=== PATIENT | male | born 1935 | race Caucasian/White ===

== ENCOUNTER 2017-01-14 01:31 | Inpatient (IN) | payer MEDICARE, OTHER ==
[~2017-01-14] VITALS: Ht 170.2 cm; Wt 73.4 kg
--- OUTSIDE RECORDS SUMMARY | 2017-01-14 01:36 | XMS REPORT | Continuity of Care Document ---
Author Author [facility] Address Unknown Phone Unavailable Allergies Active Description Code Type Severity Reaction Onset Reported/Identified Relationship to Patient Clinical Status Yes No Known Allergies 617072 3 N/A N/A Medications Problems Date Dx Coded Attending Type Code Diagnosis Diagnosed By 08/15/2015 ROSEMARY DAVISON MD Ot E78.5 08/15/2015 ROSEMARY DAVISON MD Ot G62.9 08/15/2015 ROSEMARY DAVISON MD Ot I10 08/15/2015 ROSEMARY DAVISON MD Ot I25.10 08/15/2015 ROSEMARY DAVISON MD Ot Z00.00 08/15/2015 ROSEMARY DAVISON MD Ot Z13.6 08/30/2015 ROSEMARY DAVISON MD Ot E78.5 08/30/2015 ROSEMARY DAVISON MD Ot G62.9 08/30/2015 ROSEMARY DAVISON MD Ot I10 08/30/2015 ROSEMARY DAVISON MD Ot I25.10 08/30/2015 ROSEMARY DAVISON MD Ot Z00.00 08/30/2015 ROSEMARY DAVISON MD Ot Z13.6 01/10/2016 Ot M25.532 01/30/2016 Ot M25.532 PAIN IN LEFT WRIST 02/03/2016 ROSEMARY DAVISON MD Ot M25.532 PAIN IN LEFT WRIST 02/03/2016 ROSEMARY DAVISON MD Ot S52.92XA UNSP FRACTURE OF LEFT FOREARM, INIT FOR 02/03/2016 ROSEMARY DAVISON MD Ot W19.XXXA UNSPECIFIED FALL, INITIAL ENCOUNTER 02/05/2016 Ot M25.532 PAIN IN LEFT WRIST 02/05/2016 ROSEMARY DAVISON MD Ot M25.532 PAIN IN LEFT WRIST 02/05/2016 ROSEMARY DAVISON MD Ot S52.92XA UNSP FRACTURE OF LEFT FOREARM, INIT FOR 02/05/2016 ROSEMARY DAVISON MD Ot W19.XXXA UNSPECIFIED FALL, INITIAL ENCOUNTER 02/05/2016 Ot M25.532 PAIN IN LEFT WRIST 02/06/2016 Ot M25.532 PAIN IN LEFT WRIST 02/23/2016 ROSEMARY DAVISON MD Ot M25.532 PAIN IN LEFT WRIST 02/23/2016 ROSEMARY DAVISON MD Ot S52.92XA UNSP FRACTURE OF LEFT FOREARM, INIT FOR 02/23/2016 ROSEMARY DAVISON MD Ot W19.XXXA UNSPECIFIED FALL, INITIAL ENCOUNTER 02/27/2016 ROSEMARY DAVISON MD Ot M25.532 PAIN IN LEFT WRIST 02/27/2016 ROSEMARY DAVISON MD Ot S52.92XA UNSP FRACTURE OF LEFT FOREARM, INIT FOR 02/27/2016 ROSEMARY DAVISON MD Ot W19.XXXA UNSPECIFIED FALL, INITIAL ENCOUNTER 02/29/2016 W S52.592A Other closed fracture of distal end of left radius, initial encounter 03/16/2016 W S52.592A Other closed fracture of distal end of left radius, initial encounter 03/16/2016 W S52.592D Other fractures of lower end of left radius, subsequent encounter for closed fracture with routine healing 04/28/2016 LATIA DUDLEY Ot S61.411A LACERATION WITHOUT FOREIGN BODY OF RIGHT 04/28/2016 LATIA DUDLEY Ot X58.XXXA EXPOSURE TO OTHER SPECIFIED FACTORS, INI 04/28/2016 LATIA DUDLEY Ot Y92.[address] OR NOT APPLICABLE 04/28/2016 LATIA DUDLEY Ot Y93.89 ACTIVITY, OTHER SPECIFIED 04/28/2016 LATIA DUDLEY Ot Y99.9 UNSPECIFIED EXTERNAL CAUSE STATUS 05/16/2016 LATIA DUDLEY Ot S61.411A LACERATION WITHOUT FOREIGN BODY OF RIGHT 05/16/2016 LATIA DUDLEY Ot X58.XXXA EXPOSURE TO OTHER SPECIFIED FACTORS, INI 05/16/2016 LATIA DUDLEY Ot Y92.[address] OR NOT APPLICABLE 05/16/2016 LATIA DUDLEY Ot Y93.89 ACTIVITY, OTHER SPECIFIED 05/16/2016 LATIA DUDLEY Ot Y99.9 UNSPECIFIED EXTERNAL CAUSE STATUS 08/13/2016 ROSEMARY DAVISON MD Ot E78.4 OTHER HYPERLIPIDEMIA 08/13/2016 ROSEMARY DAVISON MD Ot 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 08/13/2016 ROSEMARY DAVISON MD Ot E78.4 OTHER HYPERLIPIDEMIA 08/13/2016 ROSEMARY DAVISON MD, Ot 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 08/13/2016 ROSEMARY DAVISON MD Ot E78.4 OTHER HYPERLIPIDEMIA 08/13/2016 ROSEMARY DAVISON MD, Ot 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 08/13/2016 ROSEMARY DAVISON MD Ot E78.4 OTHER HYPERLIPIDEMIA 08/13/2016 ROSEMARY DAVISON MD Ot 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 08/15/2016 ROSEMARY DAVISON MD Ot E78.4 OTHER HYPERLIPIDEMIA 08/15/2016 ROSEMARY DAVISON MD Ot 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 08/15/2016 ROSEMARY DAVISON MD Ot I10 ESSENTIAL (PRIMARY) HYPERTENSION 08/15/2016 ROSEMARY DAVISON MD Ot I25.10 ATHSCL HEART DISEASE OF [place] CORONARY 08/15/2016 ROSEMARY DAVISON MD Ot Z00.00 ENCNTR FOR GENERAL ADULT MEDICAL EXAM W 08/24/2016 ROSEMARY DAVISON MD Ot Z13.6 ENCOUNTER FOR SCREENING FOR CARDIOVASCUL 09/05/2016 ROSEMARY DAVISON MD Ot E78.4 OTHER HYPERLIPIDEMIA 09/05/2016 ROSEMARY DAVISON MD Ot 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 09/05/2016 ROSEMARY DAVISON MD Ot I10 ESSENTIAL (PRIMARY) HYPERTENSION 09/05/2016 ROSEMARY DAVISON MD Ot I25.10 ATHSCL HEART DISEASE OF [place] CORONARY 09/05/2016 ROSEMARY DAVISON MD Ot Z00.00 ENCNTR FOR GENERAL ADULT MEDICAL EXAM W 09/12/2016 ROSEMARY DAVISON MD Ot Z13.6 ENCOUNTER FOR SCREENING FOR CARDIOVASCUL Procedures Code Description [place] [address] OFFICE/OUTPATIENT VISIT NEW 2016 31671 X-RAY EXAM OF WRIST 02/29/2016 65570 OFFICE/OUTPATIENT VISIT EST 02/29/2016 Results Test Result Range Complete blood count (CBC) with automated white blood cell (WBC) differential - 08/13/16 07:45 Blood automated leukocyte count 5.10 4.0 -11.0 Erythrocytes 3.95 4.50-5.50 12.0-16.0;g/dL 12.4 13.5-17.0 Hematocrit 36.10 39.00-50.00 Automated erythrocyte mean corpuscular volume 91 80-100 Mean corpuscular hemoglobin (MCH) determination 31.4 26.0-34.0 Automated erythrocyte mean corpuscular hemoglobin concentration measurement ( mass/volume) 34.3 31.0-37.0 Erythrocyte distribution width 12.9 11.8 -15.6 Automated blood platelet count 230 150- 450 Automated blood platelet mean volume measurement 10.2 6.0-9.5 Automated neutrophil percentage 66 51- 67 Lymphocytes/100 leukocytes 21 20-46 Automated monocyte percentage 9 3-11 Eosinophil count auto 4 0-4 Automated basophil percentage 1 0-2 Automated blood neutrophil count 3.4 Blood lymphocytes count (number/volume) 1.1 Automated blood monocyte count 0.5 Blood absolute eosinophil count 0.2 Basophils 0.0 Comprehensive metabolic panel - 08/13/16 07:45 Sodium measurement 97 70-110 Carbon dioxide measurement 29 22-29 Serum or plasma anion gap 13.8 3-15 BLOOD UREA NITROGEN 21 7-18 CREATININE SERUM 1.03 0.8-1.5 Brucella species antibody panel (IgG, IgM) 20 10-20 Estimated glomerular filtration rate (GFR) 83.7 Estimated glomerular filtration rate (GFR) non- 69.1 OSMOLALITY,CALCULATED 280 280-300 CALCIUM 9.3 8.8-10.8 Calculated ionized calcium measurement 4.0 3.8-4.6 BILIRUBIN,TOTAL 0.6 0.1-1.0 Serum or plasma alkaline phosphatase measurement 80 38-126 ASPARTATE AMINO TRANSFERASE 34 15-37 ALANINE AMINOTRANSFERASE 38 30-65 Serum or plasma total protein measurement 7.3 6.4-8.5 Serum or plasma albumin measurement 3.9 3.4-5.0 Serum or plasma albumin/globulin mass ratio 1.147 1.1-1.8 General health panel - 08/13/16 07:45 Total cell count 4.45 0.46-4.68 LIPID PANEL - 08/13/16 07:45 Cholesterol 132 50-200 HDL Cholesterol 47 40-60 Triglycerides 103 10-150 LDL CHOLESTEROL 64 50-130 VLDL Cholesterol, calc 21 4.00-40.00 Cholesterol.total/Cholesterol.in HDL 2.8 0.0-5.0 Encounters ACCT No. Visit Date/Time Discharge Status Pt. Type Provider Facility Loc./Unit Complaint [id number] 09/06/2015 10:17:00 2014 23:59:59 CLS Outpatient KAMI IVY, [facility] [id number] 08/08/2015 07:33:00 2014 23:59:59 CLS Outpatient LANEY BALLARD, [facility] LAB [id number] 07/29/2014 07:33:00 2013 23:59:59 CLS Outpatient [id number] 06/16/2014 02:18:00 2013 23:59:59 CLS Outpatient [id number] 05/28/2013 15:15:00 2012 16:00:00 DIS Outpatient [id number] 05/26/2013 07:21:00 2012 23:59:59 CLS Outpatient [id number] 08/22/2016 08:12:00 ACT Outpatient LANEY BALLARD, [facility] RAD AAA SCREENING [id number] 08/13/2016 07:38:00 ACT Outpatient LANEY BALLARD, [facility] LAB [id number] 01/31/2016 10:20:00 ACT Outpatient LANEY BALLARD, [facility] RAD [id number] 01/06/2016 09:13:00 Document Registration
--- OUTSIDE RECORDS SUMMARY | 2017-01-14 01:39 | XMS REPORT | Continuity of Care Document ---
Author Author [facility] Address Unknown Phone Unavailable Allergies Active Description Code Type Severity Reaction Onset Reported/Identified Relationship to Patient Clinical Status Yes No Known Allergies 248281 3 N/A N/A Medications Problems Date Dx [...] MD Ot I25.10 ATHSCL HEART DISEASE OF [place] CORONARY 08/15/2016 ROSEMARY DAVISON MD Ot Z00.00 ENCNTR FOR GENERAL ADULT MEDICAL EXAM W 08/24/2016 ROSEMARY DAVISON MD Ot Z13.6 ENCOUNTER FOR SCREENING FOR CARDIOVASCUL 09/05/2016 ROSEMARY DAVISON MD Ot E78.4 OTHER HYPERLIPIDEMIA 09/05/2016 ROSEMARY DAVISON MD Ot 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 Type Provider Facility Loc./Unit Complaint [id number] 09/06/2015 10:17:00 2014 23:59:59 CLS Outpatient KAMI IVY, [facility] [id number] 08/08/2015 07:33:00 2014 23:59:59 CLS Outpatient LANEY BALLARD, [facility] LAB [id number] 07/29/2014 07:33:00 2013 23:59:59 CLS Outpatient [id number] 06/16/2014 02:18:00 2013 23:59:59 CLS Outpatient [id number] 05/28/2013 15:15:00 2012 16:00:00 DIS Outpatient [id number] 05/26/2013 07:21:00 2012 23:59:59 CLS Outpatient [id number] 08/22/2016 08:12:00 ACT Outpatient LANEY BALLARD, [facility] RAD AAA SCREENING [id number] 08/13/2016 07:38:00 ACT Outpatient LANEY BALLARD, [facility] LAB [id number] 01/31/2016 10:20:00 ACT Outpatient LANEY BALLARD, [facility] RAD [id number] 01/06/2016 09:13:00 Document Registration
[2017-01-14] MEDS ORDERED: ONDANSETRON 2 MG/ML (Z0FRAN) 2 ML VIAL IV ONE (01:45)
[2017-01-14 02:05] LABS: BASOPHILS % (AUTO) 0 % (0-2); EOSINOPHILS # (AUTO) 0.1 10^3uL; EOSINOPHILS % (AUTO) 1 % (0-4); LYMPHOCYTES # (AUTO) 0.9 X10^3; MEAN CORPUSCULAR HEMOGLOBIN 30.1 PG (26.0-34.0); MEAN CORPUSCULAR HGB CONC 33.2 g/dL (31.0-37.0); MEAN CORPUSCULAR VOLUME 91 FL (80-100); MEAN PLATELET VOLUME 11.4 FL (6.0-9.5); MONOCYTES # (AUTO) 0.9 X10^3; MONOCYTES % (AUTO) 8 % (3-11); NEUTROPHILS # (AUTO) 10.4 X10^3; NEUTROPHILS % (AUTO) 84 % (51-67); PLATELET COUNT 225 10^3uL (150-450); WHITE BLOOD COUNT 12.44 10^3uL (4.0-11.0)
[2017-01-14 02:06] LABS: ALBUMIN 4.3 g/dL (3.4-5.0); ALKALINE PHOSPHATASE 108 U/L (38-126); ANION GAP 16.8 MEQ/L (3-15); BUN/CREATININE RATIO 21 (10-20); LIPASE* 1045 U/L (23-300); TOTAL PROTEIN 7.4 g/dL (6.4-8.5)
[2017-01-14] MEDS ORDERED: ACETAMINOPHEN 325 MG TAB (TYLENOL) PO PRN (03:00)
[2017-01-14] MEDS ORDERED: HYDROmorphone 1 MG/ML (DILAUDID) SYRINGE IV PRN (03:00)
[2017-01-14] MEDS ORDERED: ONDANSETRON 2 MG/ML (Z0FRAN) 2 ML VIAL IV PRN (03:00)
[2017-01-14] MEDS ORDERED: CLOP75TA28 PO (03:08)
[2017-01-14] MEDS ORDERED: SIMV40TA2 PO (03:11)
[2017-01-14] MEDS ORDERED: ASPI-586 PO (03:11)
--- NOTE | 2017-01-14 03:14 | NUR ---
PT CONTINUES TO DENIES PAIN SINCE ARRIVAL. NO N/V/D WHILE IN ED.
--- NOTE | 2017-01-14 03:26 | NUR ---
Pt admitted to 303 via w/c from ER, accompanied by . Ambulates to weight chair and bed. Denies pain. No n/v. See admission assessment for further details.
[2017-01-14 03:36] VITALS: BP 140/60
--- NOTE | 2017-01-14 03:55 | NUR ---
Dr Pierce assesses pt via remote monitoring.
--- NOTE | 2017-01-14 04:26 | History and Physical (E) ---
History & Physical Chief complaint: Abdominal pain History of present illness: This is an 81-year-old male who has intermittent episodes of abdominal pain. She is last episode was 3 years ago. At 10:00 tonight patient had sudden onset of abdominal pain primarily epigastric in location. This pain did not radiate. The patient had associated nausea and vomiting and diarrhea. The patient felt fine after that point. The patients symptoms persisted and therefore patient presents to the emergency department for evaluation. In the emergency department the patients workup demonstrated elevated lipase. At this time the patient is to be admitted for further assessment of acute pancreatitis. The patients previous episode 3 years ago, the patient did not seek medical care. The patient has had a colonoscopy 10 years ago that was described as normal Past medical history: Coronary artery disease, atrial fibrillation, hypertension Past surgical history: Arthroscopic procedure on the, epidural injections for C8 Medications: See medication administration record Allergies: None Social history: , in room patient, retired from the [employer] business, no tobacco, no alcohol Family history: Noncontributory Review of systems: No headache, no change in vision, no fever chills or sweats, no sores in the mouth, no difficulty swallowing, no neck or jaw pain, no chest pain, no cough or URI symptoms, patient denies paroxysmal nocturnal dyspnea, no orthopnea, patient had onset of dull pain with nausea and vomiting and diarrhea as noted above, no blood in either activities, patients weight is unchanged, down to 160 chronically for the past several years, patient denies any urinary symptoms , no edema in the legs, no neurological symptoms, a 12 point review systems is otherwise negative except for outlined above Physical examination: Vital signs: Afebrile, blood pressure 137/54, sats are 95% on room air, pulse is 75 General well-developed well-nourished white male alert and oriented person place and time and situation in no distress comfortable sitting in bed HEENT: Sclera nonicteric, extraocular muscles are intact Neck is supple without pain with movement Lungs are diminished but no wheezes or rhonchi Heart is regular rate and rhythm no murmur Abdomen is flat, bowel sounds are diminished at present, mild tenderness to palpation per nursing personnel Extremities show no edema Neurologically no deficits Lab: Sodium 144, potassium 3.6, serum bicarbonate 27, U 23, currently 1.1, glucose 118, white count 12.4, hemoglobin 12.9, platelet counts 225,000, 84% segs, lipase is 1045, troponin less than 0.01, liver profile is normal Impression/plan 1. 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 Coronary disease chronic present admission: Well hold oral medicines acutely with pancreatitis, will adjust meds as indicated as by mouth status improves, workup on admission demonstrates no evidence of cardiac disease exacerbation 3. History of atrial fibrillation chronic present admission: Not initiate this point in time 4. Hypertension chronic present on admission: Patient states that this is been resolved for the most recent. 5. DVT prophylaxis: SCD Allergies/Home Medications Allergies: Coded Allergies: No Known Drug Allergies (Unverified , 01/14/17) Reported Home Medications Scheduled Aspirin (Aspir 81) 81 MG PO DAILY (Reported) Clopidogrel Bisulfate (Clopidogrel) 75 MG PO DAILY (Reported) Simvastatin (Simvastatin) 40 MG PO DAILY (Reported) Copies to: End of Report . JENNIFER HILL MD Jan 14, 2017 04:26
[2017-01-14] MEDS ORDERED: PANTOPRAZOLE IV 40 MG in SODIUM CHLORIDE FLUSH 10 ML IV ONE (06:00)
[2017-01-14 06:04] LABS: MEAN CORPUSCULAR HEMOGLOBIN 30.2 PG (26.0-34.0); MEAN CORPUSCULAR HGB CONC 33.4 g/dL (31.0-37.0); MEAN CORPUSCULAR VOLUME 90 FL (80-100); MEAN PLATELET VOLUME 11.1 FL (6.0-9.5); PLATELET COUNT 185 10^3uL (150-450); WHITE BLOOD COUNT 9.81 10^3uL (4.0-11.0)
--- NOTE | 2017-01-14 06:09 | NUR ---
Pt cont to deny pain. No n/v since admission. No diarrhea. IVF infusing w/o difficulty. Resp even and non labored on RA.
[2017-01-14 06:21] LABS: ALBUMIN 3.4 g/dL (3.4-5.0); TOTAL PROTEIN 6.2 g/dL (6.4-8.5)
[2017-01-14 06:25] LABS: BAND NEUTROPHILS % 4 % (0-6); EOSINOPHILS % 2 % (0-4); LYMPHOCYTES # 0.4 #; MONOCYTES # 0.7 #; MONOCYTES % 8 % (3-11); RBC MORPH NORMAL (NORMAL); SEGMENTED NEUTROPHILS % 82 % (51-67); TOTAL CELLS COUNTED 100
[2017-01-14 07:19] VITALS: BP 119/59
--- NOTE | 2017-01-14 08:38 | NUR ---
NUTRITION ASSESSMENT Level 1 Patient: Malik De Jesus Age/Sex: 81/M Date Screened: 01-14-17 Weight: 164.3#/74.7 kg Height: 67 inches Primary Diagnosis: abdominal pain Diet Order: NPO Relevant labs: glucose 110, triglycerides 64, cholesterol 98, LDL 50, HDL 35, lipase 762 Food allergies: N Nutrition Assessment Criteria Age over 80: 4 points Body Mass Index (BMI) under 19: N Admission Screening Indicates Risk? N Moderate/High Risk Diagnosis: 3 points TPN or PPN: N NPO or clear liquid diet: Yes Serum Glucose <70 or >180: N Hgb A1c >6.7: N/A Total: 7 points Risk Screen: __ Patient at low nutritional risk based on available data; reevaluate in 5-7 days __ Patient at moderate nutritional risk based on available data; reevaluate in 3-5 days _X_ Patient at high nutritional risk; complete Nutrition Assessment within 48 hours of admission.
[2017-01-14] MEDS ORDERED: MULT-954 PO (08:40)
[2017-01-14] MEDS ORDERED: UBID1CAP51 PO (08:40)
--- NOTE | 2017-01-14 08:43 | NUR ---
Med Rec completed via conversation with the patient and ext med hx.
[2017-01-14] MEDS ORDERED: LACTATED RINGERS 1,000 ML IV SCH (08:45)
[2017-01-14] MEDS ORDERED: PROMETHAZINE HCL INJ 12.5 MG in SODIUM CHLORIDE 25 ML IV PRN (08:45)
[2017-01-14 09:03] VITALS: BP 119/59
[2017-01-14] MEDS: ENOXAPARIN 40 MG/0.4 ML (LOVENOX) SYR SC SCH (09:20)
--- NOTE | 2017-01-14 09:30 | NUR ---
To radiology for CT scan. Patient remains NPO and denies abdominal pain or nausea.
[2017-01-14] MEDS ORDERED: SODIUM CHLORIDE FLUSH 3 ML SYR ONE (10:14)
[2017-01-14] MEDS ORDERED: NS FLUSH 3 ML PRN IV (10:15)
[2017-01-14] MEDS ORDERED: NS FLUSH 10 ML PRN IV (10:15)
[2017-01-14] MEDS: ASPIRIN 81 MG CHEW (CHILDREN'S ASA) PO SCH (10:19)
--- NOTE | 2017-01-14 10:52 | Progress Note (E) ---
Progress Note SUBJECTIVE Admitted after midnight. Sudden-onset epigastric pain along with nausea/ vomiting and diarrhea. Lipase was elevated to 1045 in ED. Treated as pancreatitis. Since admit, symptoms improved. Lipase improved to 762. Lipid profile did not demonstrate hypertriglyceridemia. No lab evidence of biliary obstruction. CT abdomen/pelvis is pending. On exam, awake, alert, interactive, oriented. Says abdominal pain has resolved. Not feeling nauseated. No diarrhea since admit. Updated him on findings, plan of care. Handout about pancreatitis provided. OBJECTIVE Vital Signs Date Time Temp Pulse Resp B/P Pulse Ox O2 Delivery O2 Flow Rate FiO2 01/14/17 07:19 97.0 61 19 119/59 97 Room air I & O 01/13/17 01/14/17 Cumulative From/Thru 19:00 07:00 01/14/17 01:36 - 01/14/17 06:05 Output Total 200 ml 200 ml Balance -200 ml -200 ml GEN: Awake, interactive, oriented. NAD at present. HEENT: EOMI, clear sclerae, mildly dry oral mucosa. CV: Regular without murmur. PULM: CTA B with no R/R/W. ABD: No tenderness to palpation. No guarding. Hypoactive bowel sounds. EXTR: No C/C/E. Normal peripheral pulses. Trace ankle edema. INTEG: Age related changes. No rash. NEURO: No focal motor neuro deficit. Lab-Past 14 Days, 35 Results 01/14/17 01:40: Alanine Aminotransferase (ALT/SGPT) 45, Albumin 4.3, Albumin/Globulin Ratio 1.387, Alkaline Phosphatase 108, Anion Gap 16.8H, Aspartate Amino Transf (AST/ SGOT) 41H, BUN/Creatinine Ratio 21H, Basophils # (Auto) 0.0, Basophils (%) (Auto ) 0, Blood Urea Nitrogen 23H, Calcium Level 9.2, Calcium/Ionized Calcium Ratio 4.0, Calculated Osmolality 283, Carbon Dioxide Level 27, Chloride Level 105, Creatinine 1.11, Eosinophils # (Auto) 0.1, Eosinophils (%) (Auto) 1, Estimat Glomerular Filtration Rate 76.7, Estimated GFR (Non- 63.4, Glucose Level 118#H, Hematocrit 38.80L, Hemoglobin 12.9L, Lipase 1045H, Lymphocytes # (Auto) 0.9, Lymphocytes (%) (Auto) 8L, Mean Corpuscular Hemoglobin 30.1, Mean Corpuscular Hemoglobin Concent 33.2, Mean Corpuscular Volume 91, Mean Platelet Volume 11.4H, Monocytes # (Auto) 0.9, Monocytes (%) ( Auto) 8, Neutrophils # (Auto) 10.4, Neutrophils (%) (Auto) 84H, Platelet Count 225, Potassium Level 3.6, Red Blood Count 4.28L, Red Cell Distribution Width 12.9, Sodium Level 144, Total Bilirubin 0.4, Total Protein 7.4, Troponin I < 0.012, White Blood Count 12.44H 01/14/17 05:40: Alanine Aminotransferase (ALT/SGPT) 44, Albumin 3.4#, Albumin/Globulin Ratio 1.214, Alkaline Phosphatase 86, Anion Gap 15.0, Aspartate Amino Transf (AST/SGOT ) 38H, BUN/Creatinine Ratio 24H, Basophils # (Auto) , Basophils (%) (Auto) , Blood Urea Nitrogen 23H, Calcium Level 8.4L, Calcium/Ionized Calcium Ratio 4.0, Calculated Osmolality 281, Carbon Dioxide Level 24, Chloride Level 108, Creatinine 0.94, Eosinophils # (Auto) , Eosinophils (%) (Auto) , Estimat Glomerular Filtration Rate 93.0, Estimated GFR (Non- 76.8, Glucose Level 110, Hematocrit 34.10L, Hemoglobin 11.4L, Lipase 762H, Lymphocytes # (Auto) , Lymphocytes (%) (Auto) , Mean Corpuscular Hemoglobin 30.2 , Mean Corpuscular Hemoglobin Concent 33.4, Mean Corpuscular Volume 90, Mean Platelet Volume 11.1H, Monocytes # (Auto) , Monocytes (%) (Auto) , Neutrophils # (Auto) , Neutrophils (%) (Auto) , Platelet Count 185, Potassium Level 4.2, Red Blood Count 3.78L, Red Cell Distribution Width 12.8, Sodium Level 143, Total Bilirubin 0.4, Total Protein 6.2L, White Blood Count 9.81, Absolute Band Neutrophils 0.4, Band Neutrophils % 4, Basophils # (Manual) 0.0, Basophils % ( Manual) 0, Blood Morphology Comment Normal, Cholesterol Level 98, Cholesterol/ HDL Ratio 2.8, Differential Total Cells Counted 100, Eosinophils # 0.2, Eosinophils % (Manual) 2, HDL Cholesterol 35L, LDL Cholesterol, Calculated 50, Lymphocytes # 0.4, Lymphocytes % (Manual) 4L, Monocytes # 0.7, Monocytes % ( Manual) 8, Neutrophils # 8.0, Segmented Neutrophils % 82H, Triglycerides Level 64, VLDL Cholesterol, Calculated 13 IMAGING 01/14/17 CT ABDOMEN/PELVIS: PENDING ASSESSMENT Malik De Jesus is a 81 year old male admitted from ED 01/13 with acute pancreatitis. This was preceded by a syndrome of nausea, vomiting and diarrhea. Etiology of his illness is uncertain but in addition to pancreatitis, acute gastroenteritis is considered. Abdominal pain was reportedly minimal but nausea/ vomiting was significant. All improved fairly rapidly after admit. He has a few chronic problems. PLAN * Acute Pancreatitis: BISAP 0 assuming no pleural effusion. Bowel rest, IVF, pain and nausea control. * Abdominal Pain: Resolved rapidly. Hydromorphone PRN. * Nausea: Resolved rapidly. Ondansetron, promethazine. * Gastroenteritis: Possible, on the basis of nausea/vomiting/diarrhea all of fairly acute onset. Observe. * GERD: Pantoprazole * F/E/N: NPO, LR, peripheral IV. I&O, daily weight. * Prophylaxis: Enoxaparin * Code Status: DNR * Dispo: Inpatient. CT abdomen pending. If negative, and if symptoms continue to rapidly improve, possible early discharge 01/15 if tolerating a liquid diet. CHRONIC ISSUES * CAD: Aspirin. Resume clopidogrel if CT abdomen does not indicate need for surgery. Resume ubidecarenone when tolerating PO. * HLD: Simvastatin. TOO TAVAREZ MD Jan 14, 2017 08:47
--- NOTE | 2017-01-14 11:04 | Diagnostic Imaging Report ---
PROCEDURE: CT of the abdomen with and without contrast and CT of the pelvis with contrast. TECHNIQUE: Precontrast acquisitions were acquired through the abdomen. Multiple contiguous axial images were obtained through the abdomen and pelvis after administration of intravenous contrast. INDICATION: Abdominal pain, nausea and vomiting. FINDINGS: The appendix is visualized, air-containing, nondilated and normal. There is a simple left hepatic lobe cyst as a benign incidental finding. The liver, gallbladder, bile ducts, spleen, adrenals and pancreas all otherwise unremarkable and showed no acute finding. There is no hydronephrosis. There are no opaque kidney stones. There is a lower pole right renal cortical cyst showing no complexity. 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 The right common iliac tortuous and ectatic measuring a diameter of 19 mm. No vascular rupture. Prostate, seminal vesicles and urinary bladder had an unremarkable appearance. There is diverticuli of the sigmoid colon but no convincing evidence for diverticulitis. There is no ascites, abscess, hematoma or other fluid collection. There is no bowel obstruction, no free air or pneumatosis. IMPRESSION: Benign hepatorenal cysts, no bowel, biliary or urinary tract obstruction. Negative appendix. Atherosclerotic aortoiliac ectasia. No acute appearing abnormality. Noninflamed diverticulosis. Dictated by: Dictated on workstation # [id number]
--- NOTE | 2017-01-14 12:42 | NUR ---
Patient is ambulating the halls without difficulty. Continues to deny abdominal pain. Remains NPO.
--- NOTE | 2017-01-14 13:30 | NUR ---
Gave the patient some clear liquids without increased pain or nausea.
--- NOTE | 2017-01-14 14:07 | NUR ---
MULTIDISCIPLINARY MTG/DR. TAVAREZ: Pt. initially admitted for pancreatitis with pain and an elevated lipase. Pt. improved rapidly and after further evaluation Pt. may have had gastroenteritis. Pt. had a CT of his abdomen today. Pt. has been on bowel rest. Will advance to clear liquids and possibly discharge tomorrow. Will check his CRP and lipase in the morning. No discharge needs identified at this time.
[2017-01-14 15:40] VITALS: BP 101/62
--- NOTE | 2017-01-14 18:44 | NUR ---
Pt has ambulated in halls multiple times this afternoon. Tolerating CL diet well. Denies pain. IVF infusing with no difficulty. Skin warm, dry, intact. Resprs nonlabored, even on RA. Denies needs.
--- NOTE | 2017-01-14 20:00 | NUR ---
Resting in bed. Visiting with . IV infused and placed to SL. Respirations even and non-labored. No respiratory distress. Wanting a shower. Shower ready for patient. Shower taken. Night clothes on. No concerns voiced. Watching TV. Ready for sleep. Call light within reach.
[2017-01-14] MEDS ORDERED: SIMvastatin 40 MG (ZOCOR) TAB PO SCH (21:00)
[2017-01-15] VITALS: BP 126/61
--- NOTE | 2017-01-15 | NUR ---
Awakened for vitals. denies any discomforts. No pain or nausea. Cooperative with cares. Voids yellow urine without difficulty.
--- NOTE | 2017-01-15 06:39 | NUR ---
Patient is up ad ernestina in hallway. Is alert and oriented. Denies pain or nausea. Anxious to go home.No discomforts voiced. Call light within reach.
--- NOTE | 2017-01-15 07:29 | NUR ---
Pt ambulating halls indep- gait steady. Denies any pain or discomfort. Denies n/v. States he is "beyond ready to go home." SL intact to LAC. Verbalizes needs appropriately. Will cont to monitor patient.
[2017-01-15] MEDS: ENOXAPARIN 40 MG/0.4 ML (LOVENOX) SYR SC SCH (07:48)
[2017-01-15] MEDS: ASPIRIN 81 MG CHEW (CHILDREN'S ASA) PO SCH (07:49)
[2017-01-15 08:01] VITALS: BP 112/56
--- NOTE | 2017-01-15 08:12 | NUR ---
(late posting from 01-14-17) NUTRITION ASSESSMENT Level II Patient: Malik De Jesus Age/Sex: 81/M Date Assessed: 01-14-17 ASSESSMENT Pertinent History: Patient admitted with abdominal pain and screened at high nutritional risk secondary to elderly age and diagnosis. PMHx includes CAD, a fib and HTN. He lives at home with his . Pt. denied problems swallowing or GI concerns. UBW is ~160# for the past few years. Meds/Nutrition: Lactated Ringers Weight: 164.3#/74.7 kg Height: 67 inches Body Mass Index (BMI): 25.8 [place]cette Body Weight : 148#/67.2 kg % IBW: 111% GASTROINTESTINAL Appetite: N/A Diet Order: NPO Unintentional loss of >10 lbs. in 3 months: N Difficult to chew/swallow: N Diabetes: N Relevant Labs: glucose 110, triglycerides 64, cholesterol 98, LDL 50, HDL 35, lipase 762 Calculations for Nutritional Assessment Estimated calorie needs: 25-28 kcals/kg = 1,850-2,000 kcals Estimated protein needs: 1.0-1.3 g/kg = 74-96 g./day DIAGNOSIS 1. Nutrition Diagnosis: (acute) inadequate intake related to abdominal pain as evidenced by NPO with reports of abdominal pain and one-time event n/v/d. NUTRITIONAL INTERVENTION Goal: Patient will receive adequate nutrition to meet his needs within an appropriate time-frame. Plan: Will monitor length of time NPO and tolerance to diet as advanced. MONITORING & EVALUATION __ Monitor patients menu selections __ Monitor patients food intake per nursing notes _X_ Monitor NPO/clear liquid days __ Monitor lab values __ Monitor I&O __ Other
--- NOTE | 2017-01-15 08:14 | Discharge Instructions (E) ---
Discharge Instructions Instructions * You were evaluated and treated for a gastrointestinal illness that including nausea, vomiting, and diarrhea. Because of an abnormal lab value on admit called lipase, there was initial concern that you had a condition called pancreatitis. If you indeed had pancreatitis, your case was mild. You had a CT scan of your abdomen which did not show any active inflammation of your pancreas. You improved rapidly and should continue to further improve after discharge. Review the previously provided handout about pancreatitis for further details. For the next 2 weeks, eat a low-fat diet that avoids fats and oils. Be sure to seek medical attention if you develop recurrent abdominal pain , nausea, vomiting, or any other concerns. * It is possible that your illness was triggered by a gastrointestinal virus. No tests could be performed to verify this, but in most cases these illnesses resolve on their own in 48-72 hours. Review the provided handout for details. Activity Instructions As tolerated. Doctor's Appointment Follow-up with your primary care doctor in 3-5 days. Discharge Diet: Other (Low fat) TOO TAVAREZ MD Jan 15, 2017 08:13
--- NOTE | 2017-01-15 08:33 | Discharge Summary (E) ---
Discharge Summary (E) Admit Date/Time Jan 14, 2017 at 02:59 Discharge Date/Time Jan 15, 2017 Admitting Provider Abdelrahman Pierce MD Primary Care Provider Baltazar Mandel MD Attending Provider Abdelrahman Pierce MD, Michael MD Consulting Provider History and Present Illness Malik De Jesus is a 81 year old male admitted from ED 01/13 with acute pancreatitis. This was preceded by a syndrome of nausea, vomiting and diarrhea, all of fairly sudden onset. Etiology of his illness is uncertain but in addition to pancreatitis, acute gastroenteritis is considered. Abdominal pain was reportedly minimal but nausea/vomiting was significant. All improved fairly rapidly after admit. He was treated with bowl rest and IVF but with reassuring CT abdomen and with rapid symptomatic improvement, diet was advanced which he tolerated well. He was discharged home in improved, stable condition. Hospital Course and Treatment * Acute Pancreatitis: BISAP 0 assuming no pleural effusion. Bowel rest, IVF, pain and nausea control. Symptoms all rapidly improved and CT abdomen was reassuring. * Abdominal Pain: Resolved rapidly. Hydromorphone PRN. * Nausea: Resolved rapidly. Ondansetron, promethazine. * Gastroenteritis: Possible, on the basis of nausea/vomiting/diarrhea all of fairly acute onset. Observe. * GERD: Pantoprazole CHRONIC ISSUES * CAD: Aspirin. Resume clopidogrel if CT abdomen does not indicate need for surgery. Resume ubidecarenone when tolerating PO. * HLD: Simvastatin. Discharge Physicial Exam General Vital Signs Date Time Temp Pulse Resp B/P Pulse Ox O2 Delivery O2 Flow Rate FiO2 01/15/17 08:01 96.8 50 18 112/56 98 Room air GEN: Awake, interactive, oriented. NAD at present. Dressed in home clothes. HEENT: EOMI, clear sclerae, mildly dry oral mucosa. CV: Regular without murmur. PULM: CTA B with no R/R/W. ABD: No tenderness to palpation. No guarding. Active bowel sounds. EXTR: No C/C/E. Normal peripheral pulses. Trace ankle edema. INTEG: Age related changes. No rash. NEURO: No focal motor neuro deficit. Laboratory/Radiology Data WBC was mildly elevated on admit at 12.44 but improved to 9.81 the next day. Admit chemistry was fairly unremarkable but lipase was 1045. It improved to 762 the next day and was down to 77 on the day of discharge. CRP was 1.30 on the day of discharge. Full lab and imaging details as follows: Laboratory Results-14 Days 01/14/17 01:40: Alanine Aminotransferase (ALT/SGPT) 45, Albumin 4.3, Albumin/Globulin Ratio 1.387, Alkaline Phosphatase 108, Anion Gap 16.8H, Aspartate Amino Transf (AST/ SGOT) 41H, BUN/Creatinine Ratio 21H, Basophils # (Auto) 0.0, Basophils (%) (Auto ) 0, Blood Urea Nitrogen 23H, Calcium Level 9.2, Calcium/Ionized Calcium Ratio 4.0, Calculated Osmolality 283, Carbon Dioxide Level 27, Chloride Level 105, Creatinine 1.11, Eosinophils # (Auto) 0.1, Eosinophils (%) (Auto) 1, Estimat Glomerular Filtration Rate 76.7, Estimated GFR (Non- 63.4, Glucose Level 118#H, Hematocrit 38.80L, Hemoglobin 12.9L, Lipase 1045H, Lymphocytes # (Auto) 0.9, Lymphocytes (%) (Auto) 8L, Mean Corpuscular Hemoglobin 30.1, Mean Corpuscular Hemoglobin Concent 33.2, Mean Corpuscular Volume 91, Mean Platelet Volume 11.4H, Monocytes # (Auto) 0.9, Monocytes (%) ( Auto) 8, Neutrophils # (Auto) 10.4, Neutrophils (%) (Auto) 84H, Platelet Count 225, Potassium Level 3.6, Red Blood Count 4.28L, Red Cell Distribution Width 12.9, Sodium Level 144, Total Bilirubin 0.4, Total Protein 7.4, Troponin I < 0.012, White Blood Count 12.44H 01/14/17 05:40: Alanine Aminotransferase (ALT/SGPT) 44, Albumin 3.4#, Albumin/Globulin Ratio 1.214, Alkaline Phosphatase 86, Anion Gap 15.0, Aspartate Amino Transf (AST/SGOT ) 38H, BUN/Creatinine Ratio 24H, Basophils # (Auto) , Basophils (%) (Auto) , Blood Urea Nitrogen 23H, Calcium Level 8.4L, Calcium/Ionized Calcium Ratio 4.0, Calculated Osmolality 281, Carbon Dioxide Level 24, Chloride Level 108, Creatinine 0.94, Eosinophils # (Auto) , Eosinophils (%) (Auto) , Estimat Glomerular Filtration Rate 93.0, Estimated GFR (Non- 76.8, Glucose Level 110, Hematocrit 34.10L, Hemoglobin 11.4L, Lipase 762H, Lymphocytes # (Auto) , Lymphocytes (%) (Auto) , Mean Corpuscular Hemoglobin 30.2 , Mean Corpuscular Hemoglobin Concent 33.4, Mean Corpuscular Volume 90, Mean Platelet Volume 11.1H, Monocytes # (Auto) , Monocytes (%) (Auto) , Neutrophils # (Auto) , Neutrophils (%) (Auto) , Platelet Count 185, Potassium Level 4.2, Red Blood Count 3.78L, Red Cell Distribution Width 12.8, Sodium Level 143, Total Bilirubin 0.4, Total Protein 6.2L, White Blood Count 9.81, Absolute Band Neutrophils 0.4, Band Neutrophils % 4, Basophils # (Manual) 0.0, Basophils % ( Manual) 0, Blood Morphology Comment Normal, Cholesterol Level 98, Cholesterol/ HDL Ratio 2.8, Differential Total Cells Counted 100, Eosinophils # 0.2, Eosinophils % (Manual) 2, HDL Cholesterol 35L, LDL Cholesterol, Calculated 50, Lymphocytes # 0.4, Lymphocytes % (Manual) 4L, Monocytes # 0.7, Monocytes % ( Manual) 8, Neutrophils # 8.0, Segmented Neutrophils % 82H, Triglycerides Level 64, VLDL Cholesterol, Calculated 13 01/15/17 05:35: Lipase 77, C-Reactive Protein 1.30H 01/14/17 CT ABDOMEN W WO/PELVIS W PROCEDURE: CT of the abdomen with and without contrast and CT of the pelvis with contrast. TECHNIQUE: Precontrast acquisitions were acquired through the abdomen. Multiple contiguous axial images were obtained through the abdomen and pelvis after administration of intravenous contrast. INDICATION: Abdominal pain, nausea and vomiting. FINDINGS : The appendix is visualized, air-containing, nondilated and normal. There is a simple left hepatic lobe cyst as a benign incidental finding. The liver, gallbladder, bile ducts, spleen, adrenals and pancreas all otherwise unremarkable and showed no acute finding. There is no hydronephrosis. There are no opaque kidney stones. There is a lower pole right renal cortical cyst showing no complexity. 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 The right common iliac tortuous and ectatic measuring a diameter of 19 mm. No vascular rupture. Prostate, seminal vesicles and urinary bladder had an unremarkable appearance. There is diverticuli of the sigmoid colon but no convincing evidence for diverticulitis. There is no ascites, abscess, hematoma or other fluid collection. There is no bowel obstruction, no free air or pneumatosis. IMPRESSION: Benign hepatorenal cysts, no bowel, biliary or urinary tract obstruction. Negative appendix. Atherosclerotic aortoiliac ectasia. No acute appearing abnormality. Noninflamed diverticulosis. Discharge Disposition Discharged home. Instructions * You were evaluated and treated for a gastrointestinal illness that including nausea, vomiting, and diarrhea. Because of an abnormal lab value on admit called lipase, there was initial concern that you had a condition called pancreatitis. If you indeed had pancreatitis, your case was mild. You had a CT scan of your abdomen which did not show any active inflammation of your pancreas. You improved rapidly and should continue to further improve after discharge. Review the previously provided handout about pancreatitis for further details. For the next 2 weeks, eat a low-fat diet that avoids fats and oils. Be sure to seek medical attention if you develop recurrent abdominal pain , nausea, vomiting, or any other concerns. * It is possible that your illness was triggered by a gastrointestinal virus. No tests could be performed to verify this, but in most cases these illnesses resolve on their own in 48-72 hours. Review the provided handout for details. Activity Instructions As tolerated. Appointments Follow-up with your primary care doctor in 3-5 days. Discharge Diet: Other (Low fat) Discharge Medications Continued Medications: Aspirin (Aspir 81) 81 Mg Tablet.dr 81 MG PO DAILY TAB Clopidogrel Bisulfate (Clopidogrel) 75 Mg Tablet 75 MG PO DAILY #90 Multivitamin (Multi Vitamin Daily) 1 Each Tablet 1 EACH PO DAILY TAB Simvastatin (Simvastatin) 40 Mg Tablet 40 MG PO HS TAB Ubidecarenone/Vit E Acetate (Co Q-10 100 mg Softgel) 1 Each Capsule 1 EACH PO DAILY CAP Discharge Diagnosis See list above. Problems: Copies to: End of Report . TOO TAVAREZ MD Jan 15, 2017 08:33
[2017-01-15] MEDS ORDERED: NS FLUSH 3 ML DAILY IV SCH (09:00)
--- NOTE | 2017-01-15 09:07 | NUR ---
Patient dismissed ambulatory accompanied by Sirisha Leroy CNA. Patient expressed thanks for the care he received.
== END 2017-01-15 09:07 | disposition home or self-care (01) | DRG 440 ==
LOC: ED 01:36 → MED/SURG 02:59
PROVIDERS: ADMIT Emergency Medicine; ATTEND Emergency Medicine
DX: K85.90 Acute pancreatitis without necrosis or infection, unspecified (principal); K52.9 Noninfective gastroenteritis and colitis, unspecified; K21.9 Gastro-esophageal reflux disease without esophagitis; I25.10 Atherosclerotic heart disease of native coronary artery without angina pectoris; E78.5 Hyperlipidemia, unspecified; I10 Essential (primary) hypertension; I48.2 Chronic atrial fibrillation
CPT/HCPCS: 36415; 74178; 80053; 80061; 83690; 84484; 85025; 86140; 96374; 99283

== ENCOUNTER → 2017-01-14 | Outpatient (CLI) | payer MEDICARE ==
[~2017-01-14] MED LIST: ASPI-586 PO; CLOP75TA28 PO; MULT-954 PO; SIMV40TA2 PO; UBID1CAP51 PO
== END ==
LOC: EMS 01:25
PROVIDERS: ATTEND Family Medicine
DX: R11.2 Nausea with vomiting, unspecified (principal); E86.0 Dehydration

== ENCOUNTER → 2017-02-11 | Outpatient (CLI) | payer MEDICARE ==
[2017-02-11 07:50] LABS: BASOPHILS % (AUTO) 0 % (0-2); EOSINOPHILS # (AUTO) 0.2 10^3uL; EOSINOPHILS % (AUTO) 4 % (0-4); LYMPHOCYTES # (AUTO) 0.9 X10^3; MEAN CORPUSCULAR HGB CONC 33.3 g/dL (31.0-37.0); MEAN CORPUSCULAR VOLUME 90 FL (80-100); MEAN PLATELET VOLUME 10.8 FL (6.0-9.5); MONOCYTES # (AUTO) 0.5 X10^3; MONOCYTES % (AUTO) 10 % (3-11); NEUTROPHILS # (AUTO) 3.3 X10^3; NEUTROPHILS % (AUTO) 67 % (51-67); PLATELET COUNT 203 10^3uL (150-450); WHITE BLOOD COUNT 4.89 10^3uL (4.0-11.0)
[2017-02-11 08:31] LABS: ERYTHROCYTE SEDIMENTATION RT* 16 mm/hr (0-19)
== END ==
LOC: LAB 07:21
PROVIDERS: ATTEND Internal Medicine
DX: G60.8 Other hereditary and idiopathic neuropathies (principal); D50.8 Other iron deficiency anemias
CPT/HCPCS: 36415; 82607; 85025; 85652